=== PATIENT | male | born 1945 | race Caucasian/White ===

== ENCOUNTER 2018-02-04 06:42 | Day surgery (SDC) | payer BC, MEDICARE ==
[~2018-02-04 06:42] MED LIST: ACETAMINOPHEN 1,000 MG/100 ML BTL IV ONE; CEFAZOLIN 2 Gram 2 GM/50 ML BAG IVPB ONE
[2018-02-04] MEDS ORDERED: SEVOFLURANE 250 ML INH ONE (06:43)
[2018-02-04] MEDS ORDERED: METHYLPREDNISOLONE 40MG/VIAL IM ONE (06:43)
[2018-02-04] MEDS ORDERED: LIDOCAINE 1% MDV (10MG/ML) 20ML VIAL SQ ONE (06:43)
[2018-02-04] MEDS ORDERED: KETOROLAC 30 MG/ML VIAL IVP ONE (06:43)
[2018-02-04] MEDS ORDERED: *PACU ONLY* KETAMINE HCL 10 MG/ML (20ML) VIAL IV ONE (06:43)
[2018-02-04] MEDS ORDERED: BUPIVACAINE 0.5% W/EPI MPF 30 ML VIAL IVP ONE (06:43)
[2018-02-04] MEDS ORDERED: PROPOFOL 10 MG/ML VIAL IV ONE (06:43)
[2018-02-04] MEDS ORDERED: MORPHINE SULFATE 4MG/ML PREFILLED SYRINGE IVP ONE (06:43)
--- NOTE | 2018-02-05 05:05 | Operative Note ---
DATE: 02/04/2018 PREOPERATIVE DIAGNOSIS: INTERNAL DERANGEMENT OF THE RIGHT KNEE. POSTOPERATIVE DIAGNOSES: 1. GRADE 3 CHONDROMALACIA PATELLA. 2. PRIMARILY FIBROCARTILAGE OF THE NOTCH THAT IS SYNOVITIS AND THE POUCH. 3. COMPLEX TEAR INVOLVING ANTERIOR HORN OF THE MEDIAL MENISCUS. 4. SMALL GRADE 3 CHANGE OF THE MEDIAL FEMORAL CONDYLE. 5. COMPLEX SPLIT TEAR INVOLVING THE POSTERIOR AND LATERAL HORN OF THE LATERAL MENISCUS WITH A LARGE UNSTABLE FLAP. PROCEDURE: 1. RIGHT KNEE ARTHROSCOPY WITH PARTIAL AND LATERAL MENISCECTOMIES. 2. RIGHT KNEE ARTHROSCOPY WITH LIMITED SYNOVECTOMY. 2. RIGHT KNEE ARTHROSCOPY WITH CHONDROPLASTY OF THE PATELLOFEMORAL COMPARTMENT. STAFF SURGEON: JOHNIE GUTIERREZ M.D. ANESTHESIA: GENERAL. PREPARATION: CHLORAPREP. INDIVIDUAL CONSIDERATIONS: NONE. PROCEDURE: The patient was taken to the Operating Room and placed supine on the operating table. He had a successful induction of a general anesthetic. His right lower extremity was prepped and draped in the usual fashion. The patient had a superolateral inflow cannula placed. The skin was infiltrated with 0.5% Marcaine with Epinephrine prior. The knee was then inflated with normal saline. An inferior medial and an inferior lateral portal were made in a similar fashion. The arthroscope was introduced through the inferior lateral portal up into the pouch. The patellofemoral joint showed synovitis of the pouch but not really the gutters, grade 3 change of the patella with fibrocartilage of the notch. The patella was smooth. The notch was debrided of synovium and pouch. Medially, he had a complex degenerative tear involving the anterior and medial horn of the medial meniscus, this was smoothed off with a shaver to a stable rim. Small grade 3 change about the size of maybe a half of a ruiz centrally on the medial femoral condyle was smoothed in the notch. The cruciates were normal. Laterally, his meniscus was basically looked like an old split tear with a large stalk and flap posteromedially with instability extending around to about chcf up the lateral meniscus. This was debrided back to a stable rim with basket forceps and a shaver. After irrigation, the portals were closed with emma and 20 mL of 0.5% Marcaine with Epinephrine along with 80 mg of DepoMedrol and 4 mg of Morphine were injected into the knee and a sterile Bulkee compressive dressing was applied. The patient tolerated the procedure well. Needle and sponge counts were correct. Estimated blood loss was minimal and he was taken back to Recovery in good condition. There were no complications. JOB NUMBER: [id number] MTDD
== END 2018-02-04 10:10 | disposition home or self-care (01) ==
LOC: SUR 06:42
PROVIDERS: ATTEND Orthopaedic Surgery
DX: S83.271A Complex tear of lateral meniscus, current injury, right knee, initial encounter (principal); S83.231A Complex tear of medial meniscus, current injury, right knee, initial encounter; M65.861 Other synovitis and tenosynovitis, right lower leg; M22.41 Chondromalacia patellae, right knee; E11.9 Type 2 diabetes mellitus without complications; I10 Essential (primary) hypertension; E78.00 Pure hypercholesterolemia, unspecified
CPT/HCPCS: 29880; 29875; 01400; 36416; 82948; J0690; J1030; J1885; J2274

== ENCOUNTER 2019-04-14 10:48 | Day surgery (SDC) | payer MEDICARE, BC ==
[~2019-04-14 10:48] MED LIST changes: -ACETAMINOPHEN 1,000 MG/100 ML BTL IV ONE; +ACETAMINOPHEN 1,000 MG/100 ML BTL IVPB ONE
[2019-04-14] MEDS ORDERED: PROPOFOL 10 MG/ML VIAL IV ONE (10:49)
[2019-04-14] MEDS ORDERED: ONDANSETRON HCL IV 4 MG/2 ML VIAL IVP ONE (10:49)
[2019-04-14] MEDS ORDERED: LIDOCAINE 2% MDV (20MG/ML) 20ML VIAL IV ONE (10:49)
[2019-04-14] MEDS ORDERED: SEVOFLURANE 250 ML INH ONE (10:49)
[2019-04-14] MEDS ORDERED: MIDAZOLAM HCL 2MG/2ML VIAL IV ONE (10:49)
[2019-04-14] MEDS ORDERED: FENTANYL PF 100MCG/2ML VIAL IV ONE (10:49)
[2019-04-14] MEDS ORDERED: KETOROLAC 30 MG/ML VIAL IVP ONE (10:49)
[2019-04-14] MEDS ORDERED: RINGERS SOLUTION,LACTATED 1,000 ML IV ONE ×2 (11:30)
--- NOTE | 2019-04-15 14:00 | Operative Note ---
DATE OF SURGERY: 04/14/2019 PREOPERATIVE DIAGNOSIS: Internal derangement of the left knee. POSTOPERATIVE DIAGNOSES: 1. Grade 3 chondromalacia of the notch. 2. Flap tear involving the anterior horn of the medial meniscus. 3. Grade 3 chondromalacia of the medial femoral condyle. 4. Flap tear involving the anterior horn of the lateral meniscus. 5. Grade 3 chondromalacia of lateral femoral condyle, diffuse. OPERATION: 1. Left knee arthroscopy with chondroplasty of the medial femoral condyle, lateral femoral condyle, and notch. 2. Left knee arthroscopy with subtotal medial and lateral meniscectomy. STAFF SURGEON: Iron Silverio MD ANESTHESIA: General. PREPARATION: Chloraprep. INDIVIDUAL CONSIDERATIONS: None. PROCEDURE: The patient was taken to the operating room and placed supine on the operating room table. The patient had a successful induction with general anesthetic. The left lower extremity was prepped and draped in the usual fashion. The patient had a superolateral inflow cannula placed. Skin was infiltrated with 0.5% Marcaine with epinephrine prior. An 18-gauge spinal needle was placed in the joint and the joint was inflated with normal saline. An inferomedial and an inferolateral portal were made in a similar fashion. The arthroscope was introduced through the inferolateral portal up into the pouch. The patellofemoral joint showed grade 3 changes throughout the notch, which was smoothed off with a shaver, especially at the periphery. The patella looked good. No significant synovitis. No loos bodies in either gutter. Medially, a flap tear involving the anterior horn of the medial meniscus, which was debrided back to a stable rim with basket forceps and a shaver. There were grade 3 changes centrally on the medial femoral condyle the size of a half dollar not down to bone. Tibial plateau was intact. The notch and the cruciates were normal laterally. A similar flap tear involving the anterior horn of the lateral meniscus was debrided back with a shaver and basically from about 40-90 degrees of flexion, there were grade 3 changes of the lateral femoral condyle with the loose stuff being debrided with a shaver. Tibial plateau looked good. After irrigation, portals were closed with emma, and 20 mL of 0.5% Marcaine with epinephrine along with 4 mg of morphine and 40 mg of Depo-Medrol were injected into the knee. A sterile bulky compressive dressing was applied. The patient tolerated the procedure well. Needle and sponge counts were correct. Estimated blood loss was minimal. He was taken back to recovery in good condition. There were no complications. JEANCARLOS
== END 2019-04-14 14:35 | disposition home or self-care (01) ==
LOC: SUR 10:48
PROVIDERS: ATTEND Orthopaedic Surgery
DX: S83.242A Other tear of medial meniscus, current injury, left knee, initial encounter (principal); S83.282A Other tear of lateral meniscus, current injury, left knee, initial encounter; M94.262 Chondromalacia, left knee; I10 Essential (primary) hypertension; E78.00 Pure hypercholesterolemia, unspecified; E11.9 Type 2 diabetes mellitus without complications; E78.5 Hyperlipidemia, unspecified
CPT/HCPCS: 36416; 82948; J1885; J2405; J7120